=== PATIENT | female | born 1970 | race Two or more races ===

== ENCOUNTER 2019-07-12 12:32 | Outpatient (CLI) | payer MEDICAID ==
[~2019-07-12] VITALS: Ht 160 cm; Wt 54.4 kg
[2019-07-12 15:20] VITALS: BP 102/66
[2019-07-12] MEDS ORDERED: NAPROXEN500 M2 ORAL (15:20)
--- NOTE | 2019-07-12 20:29 | Consultation ---
DATE OF CONSULTATION: 07/12/2019 CHIEF COMPLAINT: Abdominal pain. HISTORY OF PRESENT ILLNESS: The patient is a 49-year-old female complaining of bilateral upper quadrant abdominal pain mostly in the left side compared to right going on for about a year. Denies any nausea or vomiting. Denies any dysphagia, odynophagia. Denies any melena or hematochezia. Denies any constipation or diarrhea. PAST MEDICAL HISTORY: History of migraine headaches. PAST SURGICAL HISTORY: None. MEDICATIONS: Naprosyn. FAMILY HISTORY: No family of GI malignancies. SOCIAL HISTORY: The patient denies any tobacco, alcohol, or drug abuse. ALLERGIES: No known allergies. REVIEW OF SYSTEMS: Positive for abdominal pain. IMAGING STUDIES: The patient had an abdominal ultrasound and MRI which were negative. I do not have the report of any of those studies. PHYSICAL EXAMINATION: VITAL SIGNS: Temperature 97.6, blood pressure is 102/66, pulse 80, respirations 20. HEENT: Normocephalic and atraumatic. Sclerae anicteric. NECK: Supple. No evidence of obvious lymphadenopathy. CARDIOVASCULAR: Regular rate and rhythm. Plus S1-S2. LUNGS: Clear to auscultation bilaterally. ABDOMEN:: Positive bowel sounds. Soft and nontender. Minimal tenderness to palpation in the epigastric and left upper quadrant. No rebound. No guarding. No peritoneal sign EXTREMITIES: No cyanosis, no clubbing, no edema. ASSESSMENT AND PLAN: The patient is a 49-year-old female with epigastric and left upper quadrant abdominal pain for over a year. We will start the patient on omeprazole 40 mg daily for possible gastritis as a cause of symptoms. The patient will need endoscopy and colonoscopy for evaluation of this chronic abdominal pain of unknown source with negative ultrasound and MRI per the patient. The patient was given instruction for colonoscopy. We are going to try to get authorization. If the authorization is obtained, we are going to schedule when the risk of COVID-19 in minimum. Kris Cortez M.D. DR: Dariel JOB#: [id number] CC:
== END 2019-07-12 14:32 | disposition home or self-care (01) ==
LOC: PAN 12:32
DX: R10.13 Epigastric pain (principal); R10.12 Left upper quadrant pain
CPT/HCPCS: G0463

== ENCOUNTER 2019-12-14 11:36 | Outpatient (CLI) | payer MEDICAID ==
[~2019-12-14 11:36] MED LIST: NAPROXEN500 M2 ORAL
--- NOTE | 2019-12-15 13:46 | General Progress Note ---
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
== END 2019-12-14 13:36 | disposition home or self-care (01) ==
LOC: PAN 11:36
DX: R10.9 Unspecified abdominal pain (principal); K21.9 Gastro-esophageal reflux disease without esophagitis; K64.9 Unspecified hemorrhoids
CPT/HCPCS: 99212